=== PATIENT | male | born 2000 | race Caucasian/White ===

== ENCOUNTER → 2019-12-19 | Outpatient (CLI) | payer BC | LOC: LAB 09:23 | DX: Z20.828 Contact with and (suspected) exposure to other viral communicable diseases (principal) ==

== ENCOUNTER → 2020-11-26 | Outpatient (CLI) | payer BC | LOC: LAB 12:36 | DX: Z01.89 Encounter for other specified special examinations (principal) ==

== ENCOUNTER → 2023-12-10 | Outpatient (CLI) | payer OTHER ==
[2023-12-10 09:13] LABS: BASO # 0.03 K/mm3 (0.02-0.10); EOS # 0.08 K/mm3 (0.04-0.40); EOS % 0.9 % (0.0-4.0); HEMATOCRIT 43.9 % (42.0-52.0); HEMOGLOBIN 15.1 g/dL (13.5-18.0); LYMPH# 1.57 K/mm3 (1.50-4.00); MEAN CELL VOLUME 89 fl (78-100); MEAN CORPUSCULAR HEMOGLOBIN 31 pg (27-31); MEAN CORPUSCULAR HGB CONC 34 g/dL (33-37); MEAN PLATELET VOLUME 9.5 fl (7.4-10.4); MONO # 0.72 K/mm3 (0.20-0.80); NEU # 6.28 K/mm3 (1.40-6.50); PLATELET COUNT 208 K/mm3 (130-400); RED BLOOD COUNT 4.94 M/mm3 (4.20-5.60); RED CELL DISTRIBUTION WIDTH 12.1 % (11.5-14.5); WHITE BLOOD COUNT 8.7 K/mm3 (4.8-10.8)
[2023-12-10 09:18] LABS: ALBUMIN 4.7 g/dL (3.5-5.0)
[2023-12-10 09:19] LABS: CALCIUM 9.7 mg/dL (8.3-10.5)
[2023-12-10 09:20] LABS: TOTAL PROTEIN 7.1 g/dL (6.4-8.3)
== END ==
LOC: LAB 08:54
PROVIDERS: Internal Medicine
DX: K90.9 Intestinal malabsorption, unspecified (principal)